=== PATIENT | female | born 1980 | race Caucasian/White ===

== ENCOUNTER → 2024-04-09 | Day surgery (SDC) | payer MEDICAID ==
[~2024-04-09] MED LIST: LAMO250T2 PO; LIDOCAINE HCL 1% 10 MG/ML 10ML VIAL ONE; SODIUM BICARBONATE 4% 2.4MEQ/5ML VIAL IV ONE
== END | disposition home or self-care (01) ==
LOC: RAD 08:38 → EDUNIT# 09:00
PROVIDERS: ATTEND Surgery Surgical Oncology
DX: D24.2 Benign neoplasm of left breast (principal); Z79.899 Other long term (current) drug therapy; Z98.890 Other specified postprocedural states
CPT/HCPCS: 19281; J3490 ×2; A4648

== ENCOUNTER → 2024-04-10 | Day surgery (SDC) | payer MEDICAID ==
[~2024-04-10] VITALS: Ht 172.7 cm; Wt 69.4 kg
[~2024-04-10] MED LIST changes: +BUPIVACAINE HCL/PF 0.5% (5MG/ML) 10ML ONE; +BUPIVACAINE HCL/PF 0.75% (7.5MG/ML) 10ML ONE; +CEFAZOLIN SODIUM 1000MG/VIAL ONE; +EPHEDRINE SULFATE 50MG/ML VIAL ONE; +FENTANYL CITRATE/PF 50MCG/ML 2ML VIAL ONE; +HYDROMORPHONE HCL/PF 2MG/ML INJ IV PRN; +LIDOCAINE HCL/EPINEPHRINE 1%-EPI 1:100,000 20ML VIAL ONE; +MIDAZOLAM HCL 2 MG/2 ML VIAL ONE; +ONDANSETRON HCL 4MG/2ML INJ IV PRN; +ONDANSETRON HCL 4MG/2ML INJ ONE; +PROPOFOL 200MG/20ML VIAL IV ONE
[2024-04-10 08:12] LABS: UCG KIT LOT# 873622; UCG SCREEN NEGATIVE
[2024-04-10] MEDS: LACTATED RINGERS 1,000 ML IV SCH (08:41)
== END | disposition home or self-care (01) ==
LOC: OR 07:07
PROVIDERS: ATTEND Surgery Surgical Oncology
DX: D24.2 Benign neoplasm of left breast (principal); I10 Essential (primary) hypertension; M19.90 Unspecified osteoarthritis, unspecified site; K21.9 Gastro-esophageal reflux disease without esophagitis; Z79.899 Other long term (current) drug therapy; Z98.890 Other specified postprocedural states
CPT/HCPCS: 81025; 88300; 88305; 76098; 19281; 19125; J3010; J3490 ×4; J0690; J2004; J2003; J2250; J2405; J2704; A4663; A4648